=== PATIENT | female | born 1975 | race Caucasian/White ===

== ENCOUNTER 2019-06-18 09:35 | Emergency (ER) | payer OTHER, MEDICAID, SELFPAY ==
[2019-06-18 09:45] VITALS: BP 127/82; PULSE 83; RESP 17; TEMP 36.7; O2SAT 98; BMI 38.0
--- NOTE | 2019-06-18 09:49 | DI.RAD.S_ITS ---
PROCEDURE: XR ACUTE ABDOMEN SERIES INDICATIONS: hx of obstruction, c/o gas, bloating TECHNIQUE: One view chest and two views of the abdomen were acquired. COMPARISON: None. FINDINGS: Surgical changes and devices: None. Chest: Lungs are clear. Heart size is normal. No pleural effusions. No pneumoperitoneum. Abdomen: Bowel gas pattern is normal. No suspicious calcifications. Pelvic phleboliths are incidentally noted. Visualized solid organ contours appear normal. Bones: No suspicious bony lesions. Premature lower lumbar spine degenerative changes are seen. Mild S-shaped scoliotic curvature can be seen. IMPRESSION: A nonobstructive bowel gas pattern is seen. As clinically appropriate, please consider a repeat plain film study or a dedicated CT of the abdomen and pelvis, if the patient's symptoms persist or worsen. Dictated by: Alexis Winkler M.D. on 06/18/2019 at 9:27 Approved by: Alexis Winkler M.D. on 06/18/2019 at 9:29
--- NOTE | 2019-06-18 10:01 | ED_ITS ---
HPI - Abdominal Pain General Chief Complaint: Abdominal Pain Stated Complaint: stomach pain,gas, hard time voiding and vomiting Time Seen by Provider: 06/18/19 09:54 Source: patient Mode of arrival: Ambulatory History of Present Illness HPI narrative: The patient is a 43-year-old female who has a history of FAP and is status post colectomy. She has had a previous a temporary ileostomy. She also has a past history of having a total bowel obstruction. She complains of diffuse abdominal crampy discomfort with increased gas formation. She has had increased lattice and increased frequency of belching and burping. She denies any significant indigestion or heartburn. She has had been nauseous. She describes the abdominal pain as being diffusely crampy. She denies a history of Crohn's disease or ulcerative colitis or irritable bowel syndrome. She has chronic diarrhea since she has no:. She has had her appendix removed with a colectomy but is never had her gallbladder removed. She does not have a history of pancreatitis or diabetes. Her crampy abdominal pain is 7 to 8/10 in intensity. Her discomfort is intermittent and currently she is not having any at this time. She denies any fever chills or sweats but states that in April she had an episode of illness for a few weeks. She denies any chest pain cough shortness of breath difficulty in breathing and no urinary symptomatology. Related Data Previous Rx's Medication Instructions Recorded hydrocodone-acetaminophen [[place]] 1 tab PO Q6H PRN #10 tab 06/18/19 [id number]-[id number] [[place]] 7.371 cap PO TID #30 cap 06/18/19 ondansetron HCl [Zofran] 4 mg PO Q6H PRN #10 tab 06/18/19 Allergies Allergy/AdvReac Type Severity Reaction Status Date / Time codeine Allergy Headache Verified 06/18/19 10:40 Penicillins Allergy Rash Verified 06/18/19 10:40 Review of Systems Review of Systems Narrative: All review of systems were negative except for those mentioned in the history of present illness. Patient History Medical History (Updated 06/18/19 @ 12:55 by Jay Jay Juarez MD) Bowel obstruction (Acute) Familial adenomatous polyposis (Acute) Surgical History H/O colectomy (Acute) H/O tubal ligation (Acute) Family History Father Colon cancer Social History Smoking Status: Never smoker Smoking Status: Never smoker alcohol intake frequency: holidays/special occasions only Substance Use Type: marijuana Exam Narrative Exam Narrative: PHYSICAL EXAM: CONSTITUTIONAL: Awake, Alert, Oriented, Coherent, Cooperative in NAD. Does not appear toxic or ill. HEAD: AT/NC EENT: PERRL, FROM of eyes, no discharge, no nystagmus No epistaxis or nasal drainage Oral mucosa is moist and pink, posterior pharynx is without erythema or exudate. NECK: Supple, , Trachea is midline without stridor, no palpable LN or masses. SPINE: No gross deformity, no palpable tenderness of the cervical, thoracic, lumbar or sacral spine. No CVA tenderness. THORAX: No deformity, retractions, chest wall tenderness, subcutaneous air or crepitice. LUNGS: Clear with symmetrical breath sounds without respiratory distress HEART: Normal heart tones, regular rhythm and rate without murmur. ABDOMEN: The patient's abdomen is soft, globular, doughy, without rigidity or guarding. She has diffuse tenderness to deep palpation and the evidence of surgical scars. EXTREMITIES: No edema, cyanosis, deformity or tenderness. SKIN: No rash, bruising, petechiae or purpura. NEURO: Awake, alert, oriented, conversive, cranial nerves II-XII are symmetrical and normal, moves all 4 extremities and is ambulatory Initial Vital Signs Initial Vital Signs: Vital Signs Temperature 98.1 F 06/18/19 09:45 Pulse Rate 83 06/18/19 09:45 Respiratory Rate 17 06/18/19 09:45 Blood Pressure 127/82 06/18/19 09:45 Pulse Oximetry 98 06/18/19 09:45 Course Course Course Narrative: 1147;The patient's laboratory tests revealed that she has a lipase at 1111. The patient has acute pancreatitis. She has been tolerating it. Her pain is significantly better after the Toradol. She was claiming that it was essentially 2/10. However when I went to re-evaluate her again she says that the pain is getting worse. I will a administer 4 mg of morphine sulfate. An ultrasound of her gallbladder and right upper quadrant has been ordered. There is no evidence of any bowel obstruction. Orders Ordered: Discontinued Medications Sodium Chloride (Normal Saline 0.9%) 1,000 mls @ 150 mls/hr IV CONT NIGEL Last Admin: 06/18/19 10:41 Dose: 150 mls/hr Documented by: VELASQUEZ Ketorolac Tromethamine (Toradol) 30 mg IV NOW ONE Stop: 06/18/19 10:11 Last Admin: 06/18/19 10:41 Dose: 30 mg Documented by: VELASQUEZ Ondansetron HCl (Zofran) 4 mg IV NOW ONE Stop: 06/18/19 10:10 Last Admin: 06/18/19 10:41 Dose: 4 mg Documented by: VELASQUEZ Vital Signs Vital signs: Vital Signs - 8 hr 06/18/19 09:45 06/18/19 11:32 06/18/19 11:36 Temperature 98.1 F Pulse Rate 83 70 Respiratory Rate 17 Blood Pressure 127/82 Blood Pressure [Left Arm] 100/70 Pulse Oximetry 98 100 MDM - Abdominal Pain Lab Data Result diagrams: 06/18/19 10:30 06/18/19 10:30 Labs: Lab Results 06/18/19 06/18/19 06/18/19 Range/Units 09:41 10:30 10:30 WBC 7.2 (4.5-11.0) X10^3/uL RBC 4.20 (4.0-5.2) X10^6/uL Hgb 13.0 (12.0-16.0) g/dL Hct 38.1 (36-46) % MCV 90.7 (80-100) fL MCH 31.0 (26-34) PG MCHC 34.1 (30-36) % RDW 14.4 (11.6-14.8) % Plt Count 309 (150-400) X10^3/uL Neut % (Auto) 62.9 (50-75) % Lymph % (Auto) 24.7 L (25-40) % [place] % (Auto) 8.8 (3-14) % Eos % (Auto) 2.9 (2-4) % Baso % (Auto) 0.7 (0-2) % Neut # (Auto) 4500 (1477-3811) /uL Lymph # (Auto) 1800 (4216-0931) /uL [place] # (Auto) 600 (0-900) /uL Eos # (Auto) 200 (0-450) /uL Baso # (Auto) 100 (0-100) /uL Sodium 137 (137-145) mmol/L Potassium 4.0 (3.4-5.1) mmol/L Chloride 103 (98-107) mmol/L Carbon Dioxide 26 (22-32) mmol/L BUN 20 H (7-17) mg/dL Creatinine 0.90 (0.52-1.04) mg/dL Estimated GFR > 60.0 (>60) mL/min BUN/Creatinine Ratio 22.2 H (6-22) Glucose 82 (70-100) mg/dL Calcium 9.4 (8.4-10.2) mg/dL Total Bilirubin 0.3 (0.2-1.3) mg/dL AST 20 (14-36) IU/L ALT 11 (<35) IU/L Alkaline Phosphatase 86 (38-126) U/L Total Protein 7.5 (6.3-8.2) g/dL Albumin 4.4 (3.5-5.0) g/dL Globulin 3.1 (1.7-4.1) g/dL Albumin/Globulin Ratio 1.4 (1.0-2.8) Lipase 1111 H (23-300) U/L Urine RBC 1-5/hpf (0-5/HPF) Urine WBC 10-30/hpf H (0-5/HPF) Urine Bacteria Moderate (10-30) H (None) Ur Culture Indicated? Specimen cultured Point of care testing: Point of Care Testing Test Results Negative Urine Dip Bedside Urine Glucose Negative Bedside Urine Bilirubin - Negative Bedside Urine Ketone - Negative Urine Specific [place] 1.030 Bedside Urine Occult Blood +/- Bedside Urine pH 6.0 Bedside Urine Protein + 30 Bedside Urine Urobilinogen - Negative Bedside Urine Nitrite - Negative Bedside Urine Leukocytes ++ 125 Esterase Discharge Plan Departure Patient Disposition: Home Clinical Impression: Nausea, Pancreatitis Abdominal pain Qualifiers: Abdominal location: generalized Qualified Code(s): R10.84 - Generalized abdominal pain Discharge Date/Time: 06/18/19 13:10 Instructions: DI for Pancreatitis, DI for Abdominal Pain-Adult, DI for Nausea -- Adult Activity Restrictions/Additional Instructions: If your pain suddenly becomes worse an you develop intense nausea and vomiting such that her unable to keep liquids or solids down you need to return to the emergency department. Center going on vacation take the pancreatic enzymes before any meals with solid foods prior to eating. For the low next 24-48 hours try and stay on a liquid diet without fat it in it and then slowly advanced her diet as tolerated. Since the pancreas secretions the enzymes that digest your food eating solids may cause your pancreatitis to flare. If the pain becomes intolerable with persistent nausea and vomiting as previously mentioned unable to keep anything down you will need [facility] An urgent care center will not be able to help ER. You need to follow-up with your primary care physician for re-evaluation. Keep a log of your episodes of pancreatitis pain and discomfort and the surrounding circumstances as well as how long your pancreatitis lasts. Your ultrasound was negative for gallstones. Prescriptions: New ondansetron HCl [Zofran] 4 mg tablet 4 mg PO Q6H PRN (Reason: nausea and vomiting) Qty: 10 RF: 0 hydrocodone-acetaminophen [[place]] 5-325 mg tablet 1 tab PO Q6H PRN (Reason: pain) Qty: 10 RF: 0 Creon 6,000-19,000 -30,000 unit capsule,delayed release(DR/EC) 7.371 cap PO TID Qty: 30 RF: 0
[2019-06-18 10:15] LABS: RBC Urine 1-5/HPF (0-5/HPF)
[2019-06-18 10:16] LABS: Bacteria Urine Moderate (10-30); Culture Indicated Urine Specimen Cultured; WBC Urine 10-30/HPF (0-5/HPF)
[2019-06-18 10:38] LABS: Add Manual Diff / Slide Review NO; Basophils Absolute Auto 100 /uL (0-100); Basophils Percent Auto 0.7 % (0-2); Eosinophils Absolute Auto 200 /uL (0-450); Eosinophils Percent Auto 2.9 % (2-4); Hematocrit 38.1 % (36-46); Lymphocytes Absolute Auto 1800 /uL (1100-4500); Lymphocytes Percent Auto 24.7 % (25-40); Mean Corpuscular HGB Conc 34.1 % (30-36); Mean Corpuscular Volume 90.7 fL (80-100); Monocytes Absolute Auto 600 /uL (0-900); Monocytes Percent Auto 8.8 % (3-14); Neutrophils Absolute Auto 4500 /uL (1500-7000); Neutrophils Percent Auto 62.9 % (50-75); Platelet Count 309 X10^3/uL (150-400); Red Cell Distribution Width 14.4 % (11.6-14.8); White Blood Cell Count 7.2 X10^3/uL (4.5-11.0)
[2019-06-18] MEDS: ONDANSETRON 4 MG/2 ML INJ IV (10:41)
[2019-06-18] MEDS: KETOROLAC 60 MG/2 ML VIAL 30 MG IV (10:41)
[2019-06-18] MEDS: SODIUM CHLORIDE 0.9% 1,000 ML 150 ML IV (10:41)
[2019-06-18 10:48] LABS: Alanine Aminotransferase 11 IU/L (<35); Albumin 4.4 g/dL (3.5-5.0); Albumin Globulin Ratio 1.4 (1.0-2.8); Alkaline Phosphatase 86 U/L (38-126); Aspartate Aminotransferase 20 IU/L (14-36); BUN Creatinine Ratio 22.2 (6-22); Bilirubin Total 0.3 mg/dL (0.2-1.3); Blood Urea Nitrogen 20 mg/dL (7-17); Calcium 9.4 mg/dL (8.4-10.2); Carbon Dioxide 26 mmol/L (22-32); Chloride 103 mmol/L (98-107); Estimated Glomerular Filt Rate > 60.0 mL/min (>60); Globulin 3.1 g/dL (1.7-4.1); Glucose 82 mg/dL (70-100); HEMOLYSIS < 15 (0-50); Lipase 1111 U/L (23-300); Sodium 137 mmol/L (137-145); Total Protein 7.5 g/dL (6.3-8.2)
[2019-06-18 11:32] VITALS: BP 100/70
[2019-06-18 11:36] VITALS: PULSE 70; O2SAT 100
--- NOTE | 2019-06-18 11:42 | DI.US.S_ITS ---
PROCEDURE: US ABDOMEN LIMITED INDICATIONS: ACUTE PANCREATITIS, RULE OUT GALLSTONES TECHNIQUE: Real-time focused scanning was performed of the abdomen, with image documentation. COMPARISON: [facility], , XR ACUTE ABDOMEN SERIES, 06/18/2019, 9:50. FINDINGS: The liver is enlarged and demonstrates mildly generalized increased echogenicity. No findings of gallstones or sludge are seen. The gallbladder wall is not thickened, measuring 3 mm or less. No specific pericholecystic fluid is seen. The sonographic Hoang sign is negative. There is no biliary dilatation, the common bile duct measures 3 mm. The visualized pancreas is unremarkable. This study is limited by body habitus. IMPRESSION: The gallbladder demonstrates a normal sonographic appearance. No biliary dilatation is seen. Enlarged, fatty liver. Note: Concordant preliminary findings given by the milk condenser upon the completion of the examination to Dr. Juarez at 12:25 PM [place] time on June 18, 2019. Dictated by: Alexis Winkler M.D. on 06/18/2019 at 12:14 Approved by: Alexis Winkler M.D. on 06/18/2019 at 12:15
[2019-06-18 12:01] VITALS: BP 118/82; PULSE 70; RESP 14; O2SAT 100
[2019-06-18 12:59] VITALS: BP 105/74; PULSE 71; O2SAT 100
--- NOTE | 2019-07-10 07:21 | PC.NURSE ---
Late entry. Normal saline fluid was stopped at 1305.
== END 2019-06-18 13:10 | disposition home or self-care (01) ==
PROVIDERS: Emergency Provider Emergency Medicine
DX: R11.0 Nausea (principal); K85.90 Acute pancreatitis without necrosis or infection, unspecified; R10.84 Generalized abdominal pain
CPT/HCPCS: 36415; 74022; 76705; 80053; 81003; 81015; 81025; 83690; 85025; 87077; 87086; 87186; 96361; 96374; 96375; 99284; J1885; J2405

== ENCOUNTER 2019-11-09 18:25 | Emergency (ER) | payer OTHER, MEDICAID, SELFPAY ==
--- NOTE | 2019-11-09 18:32 | ED_ITS ---
HPI - Abdominal Pain General Chief Complaint: Abdominal Pain Stated Complaint: flaring abd pain through chest Time Seen by Provider: 11/09/19 18:26 Source: patient and family Mode of arrival: Ambulatory Limitations: no limitations History of Present Illness HPI narrative: 43-year-old female nonsmoker with extensive gastrointestinal history presents with her in the chief complaint of multiple episodes of epigastric pain off and on since May but more intense today. She denies any obvious triggers such as alcohol, fatty foods but does have a history of pancreatitis, small-bowel obstruction, colon resection and possible pouchitis. She was seen in May and diagnosed with pancreatitis and had recent follow up with GI. He thought more likely a case of pouchitis than pancreatitis, an EGD was performed which sounds like it showed nothing significant. She's had no fever or chills. MD complaint: abdominal pain Onset (ago): day(s) Pain Consistency: intermittent Location: epigastric Severity: moderate Quality: cramping and aching Radiation: none Migration to: no migration Relieving factors: nothing Exacerbating factors: nothing Associated symptoms: denies other symptoms Related Data Previous Rx's Medication Instructions Recorded hydrocodone-acetaminophen [[place]] 1 tab PO Q6H PRN #10 tab 06/18/19 [id number] [Creon] 7.371 cap PO TID #30 cap 06/18/19 ondansetron HCl [Zofran] 4 mg PO Q6H PRN #10 tab 06/18/19 Allergies Allergy/AdvReac Type Severity Reaction Status Date / Time codeine Allergy Headache Verified 06/18/19 10:40 Penicillins Allergy Rash Verified 06/18/19 10:40 Review of Systems Constitutional Constitutional: Denies chills, Denies fatigue, Denies fever(s), Denies frequent falls, Denies lethargy and Denies weakness Eyes Eyes: Denies change in vision, Denies eye discharge, Denies irritation and Denies loss of vision ENT Ears, Nose, Mouth, and Throat: Denies change in voice, Denies dizziness, Denies neck pain, Denies sore throat and Denies throat swelling Cardiovascular Cardiovascular: Denies chest pain, Denies irregular heart rhythm, Denies lightheadedness, Denies palpitations, Denies dyspnea, Denies dyspnea on exertion and Denies orthopnea Respiratory Respiratory: Denies cough, Denies dyspnea, Denies dyspnea on exertion and Denies wheezing Gastrointestinal Gastrointestinal: Reports abdominal pain, Denies change in bowel habits, Denies diarrhea, Denies nausea and Denies vomiting Musculoskeletal Musculoskeletal: Denies neck pain and Denies numbness Integumentary/Breasts Skin/Breast: Denies pruritus, Denies erythema, Denies rash and Denies wounds Neurologic Neurologic: Denies behavioral changes, Denies confusion, Denies dizziness, Denies frequent falls, Denies loss of vision, Denies numbness and Denies weakness Psychiatric Psychiatric: Denies anxiety, Denies behavioral changes, Denies confusion, Denies depression, Denies homicidal ideation and Denies suicidal ideation Endocrine Endocrine: Denies fatigue, Denies flushing and Denies palpitations Hematologic/Lymphatic Hematologic/Lymphatic: Denies easy bruising Allergic/Immunologic Allergic/Immunologic: Denies urticaria, Denies throat swelling and Denies wheezing Patient History Medical History Bowel obstruction (Acute) Familial adenomatous polyposis (Acute) Surgical History H/O colectomy (Acute) H/O tubal ligation (Acute) Family History Father Colon cancer Social History Smoking Status: Never smoker Smoking Status: Never smoker alcohol intake frequency: holidays/special occasions only Substance Use Type: marijuana Exam Narrative Exam Narrative: GENERAL: [43] year old patient appears stated age. Well- nourished, well-developed patient, in mild distress. HEAD: Atraumatic. Normocephalic. EYES: Pupils equal round and reactive. Extraocular motions intact. No scleral icterus. No injection or drainage. ENT: Nose without bleeding, purulent drainage. Throat without erythema, tonsillar hypertrophy or exudate. Airway patent. NECK: Trachea midline. Non tender CARDIOVASCULAR: Regular rate and rhythm without murmurs, gallops, or rubs. RESPIRATORY: Clear to auscultation. Breath sounds equal bilaterally. No wheezes, rales, or rhonchi. GASTROINTESTINAL: Abdomen soft, tender in epigastrium, nondistended. EXTREMITIES: No edema or joint tenderness. BACK: Nontender without deformity or crepitance. No flank tenderness. NEURO: AOx3. SKIN: No rash or erythema of visible areas Initial Vital Signs Initial Vital Signs: Vital Signs Temperature 98.4 F 11/09/19 18:36 Pulse Rate 68 11/09/19 18:36 Respiratory Rate 16 11/09/19 18:36 Blood Pressure 141/88 H 11/09/19 18:36 Pulse Oximetry 97 11/09/19 18:36 Course Orders Ordered: ED Orders 11/09/19 18:34 EKG-12 Lead Stat 11/09/19 18:40 Complete Blood Count AUTO DIFF Stat Comprehensive Metabolic Panel Stat Lipase Stat Partial Thromboplastin Time Stat Prothrombin Time INR Stat 11/09/19 19:20 US abdomen limited Stat 11/09/19 19:21 Urine Culture Stat Urine Microscopic Stat Discontinued Medications Al Hydrox/Mg Hydrox/Simethicone 20 ml/ Lidocaine HCl 15 ml 0 ml PO NOW ONE Stop: 11/09/19 19:21 Last Admin: 11/09/19 19:33 Dose: 35 ml Documented by: MMCFARL Hydromorphone HCl (Dilaudid) 0.5 mg IV NOW ONE Stop: 11/09/19 20:06 Last Admin: 11/09/19 20:09 Dose: 0.5 mg Documented by: MMCFARL Sodium Chloride (Normal Saline 0.9%) 1,000 mls @ 1,000 mls/hr IV BOLUS ONE Stop: 11/09/19 20:19 Last Infusion: 11/09/19 20:25 Dose: 0 mls/hr Documented by: Admin: 11/09/19 19:33 Dose: 1,000 mls/hr Documented by: MMCFARL Pantoprazole Sodium (Protonix) 40 mg IV NOW ONE Stop: 11/09/19 19:21 Last Admin: 11/09/19 19:32 Dose: 40 mg Documented by: MMCFARL Consultations Consultation #1: discussed with patient relations coordinator surgery. We share the opinion that further workup is appropriately completed as an outpatient. No need for advanced imaging tonight. Patient given return precautions and questions answered to the apparent satisfaction of patient and Vital Signs Vital signs: Vital Signs - 8 hr 11/09/19 18:36 11/09/19 20:00 Temperature 98.4 F Pulse Rate 68 76 Respiratory Rate 16 21 Blood Pressure 141/88 H Blood Pressure [Left Arm] 141/88 H Pulse Oximetry 97 MDM - Abdominal Pain Lab Data Result diagrams: 11/09/19 18:40 11/09/19 18:40 Labs: Lab Results 11/09/19 11/09/19 11/09/19 Range/Units 18:40 18:40 18:40 WBC 10.8 (4.5-11.0) X10^3/uL RBC 4.16 (4.0-5.2) X10^6/uL Hgb 13.0 (12.0-16.0) g/dL Hct 37.8 (36-46) % MCV 90.8 (80-100) fL MCH 31.3 (26-34) PG MCHC 34.5 (30-36) % RDW 13.5 (11.6-14.8) % Plt Count 326 (150-400) X10^3/uL Neut % (Auto) 72.3 (50-75) % Lymph % (Auto) 18.8 L (25-40) % [place] % (Auto) 6.8 (3-14) % Eos % (Auto) 1.3 L (2-4) % Baso % (Auto) 0.8 (0-2) % Neut # (Auto) 7800 H (7926-7065) /uL Lymph # (Auto) 2000 (7644-4666) /uL [place] # (Auto) 700 (0-900) /uL Eos # (Auto) 100 (0-450) /uL Baso # (Auto) 100 (0-100) /uL PT 11.0 (10.1-12.7) SECONDS INR 1.0 (0.9-1.3) APTT 31 (26.4-36.2) SECONDS Sodium 136 L (137-145) mmol/L Potassium 4.1 (3.4-5.1) mmol/L Chloride 103 (98-107) mmol/L Carbon Dioxide 29 (22-32) mmol/L BUN 10 (7-17) mg/dL Creatinine 1.02 (0.52-1.04) mg/dL Estimated GFR 59.1 L (>60) mL/min BUN/Creatinine Ratio 9.8 (6-22) Glucose 90 (70-100) mg/dL Calcium 9.5 (8.4-10.2) mg/dL Total Bilirubin 0.2 (0.2-1.3) mg/dL AST 52 H (14-36) IU/L ALT 15 (<35) IU/L Alkaline Phosphatase 93 (38-126) U/L Total Protein 7.0 (6.3-8.2) g/dL Albumin 4.3 (3.5-5.0) g/dL Globulin 2.7 (1.7-4.1) g/dL Albumin/Globulin Ratio 1.6 (1.0-2.8) Lipase 325 H (23-300) U/L Urine RBC (0-5/HPF) Urine WBC (0-5/HPF) Ur Squamous Epith Cells (0-5/HPF) Amorphous Sediment Urine Bacteria (None) Ur Culture Indicated? 11/09/19 Range/Units 19:21 WBC (4.5-11.0) X10^3/uL RBC (4.0-5.2) X10^6/uL Hgb (12.0-16.0) g/dL Hct (36-46) % MCV (80-100) fL MCH (26-34) PG MCHC (30-36) % RDW (11.6-14.8) % Plt Count (150-400) X10^3/uL Neut % (Auto) (50-75) % Lymph % (Auto) (25-40) % [place] % (Auto) (3-14) % Eos % (Auto) (2-4) % Baso % (Auto) (0-2) % Neut # (Auto) (4243-7485) /uL Lymph # (Auto) (3803-0502) /uL [place] # (Auto) (0-900) /uL Eos # (Auto) (0-450) /uL Baso # (Auto) (0-100) /uL PT (10.1-12.7) SECONDS INR (0.9-1.3) APTT (26.4-36.2) SECONDS Sodium (137-145) mmol/L Potassium (3.4-5.1) mmol/L Chloride (98-107) mmol/L Carbon Dioxide (22-32) mmol/L BUN (7-17) mg/dL Creatinine (0.52-1.04) mg/dL Estimated GFR (>60) mL/min BUN/Creatinine Ratio (6-22) Glucose (70-100) mg/dL Calcium (8.4-10.2) mg/dL Total Bilirubin (0.2-1.3) mg/dL AST (14-36) IU/L ALT (<35) IU/L Alkaline Phosphatase (38-126) U/L Total Protein (6.3-8.2) g/dL Albumin (3.5-5.0) g/dL Globulin (1.7-4.1) g/dL Albumin/Globulin Ratio (1.0-2.8) Lipase (23-300) U/L Urine RBC None seen (0-5/HPF) Urine WBC 5-10/hpf H (0-5/HPF) Ur Squamous Epith Cells 0-1 /hpf (0-5/HPF) Amorphous Sediment 1+ Urine Bacteria Occasional (0-1) D (None) Ur Culture Indicated? Specimen cultured Point of care testing: Point of Care Testing Test Results Negative Urine Dip Bedside Urine Glucose Negative Bedside Urine Bilirubin - Negative Bedside Urine Ketone - Negative Urine Specific [place] 1.015 Bedside Urine Occult Blood - Negative Bedside Urine pH 7.5 Bedside Urine Protein - Negative Bedside Urine Urobilinogen - Negative Bedside Urine Nitrite - Negative Bedside Urine Leukocytes +/- 15 Esterase Discharge Plan Departure Patient Disposition: Home Clinical Impression: Chronic epigastric pain Discharge Date/Time: 11/09/19 20:24 Instructions: DI for Epigastric Pain Activity Restrictions/Additional Instructions: 1. Drink plenty of fluids with frequent small sips. 2. For the next 24 hours a clear liquid diet is advised. After that please employ a brat diet which would include bananas, rice, apples, toast. 3. Please take medications as directed. 4. Please follow-up with your GI doctor in the next 1-2 days. Call the office for an appointment and let them know you were in the Emergency Department and we would like you to be seen in follow up 5. Please return to the emergency Department for any worsening or persistent symptoms, such as increasing pain or fever. Prescriptions: No Action ondansetron HCl [Zofran] 4 mg tablet 4 mg PO Q6H PRN (Reason: nausea and vomiting) Qty: 10 RF: 0 hydrocodone-acetaminophen [[place]] 5-325 mg tablet 1 tab PO Q6H PRN (Reason: pain) Qty: 10 RF: 0 Creon 6,000-19,000 -30,000 unit capsule,delayed release(DR/EC) 7.371 cap PO TID Qty: 30 RF: 0 Referrals: Leela Singleton ARNP [Primary Care Provider] -
[2019-11-09 18:36] VITALS: BP 141/88; PULSE 68; RESP 16; TEMP 36.9; O2SAT 97; BMI 37.0
[2019-11-09 18:56] LABS: Add Manual Diff / Slide Review NO; Basophils Absolute Auto 100 /uL (0-100); Basophils Percent Auto 0.8 % (0-2); Eosinophils Absolute Auto 100 /uL (0-450); Eosinophils Percent Auto 1.3 % (2-4); Hematocrit 37.8 % (36-46); Lymphocytes Absolute Auto 2000 /uL (1100-4500); Lymphocytes Percent Auto 18.8 % (25-40); Mean Corpuscular HGB Conc 34.5 % (30-36); Mean Corpuscular Hemoglobin 31.3 PG (26-34); Mean Corpuscular Volume 90.8 fL (80-100); Monocytes Absolute Auto 700 /uL (0-900); Monocytes Percent Auto 6.8 % (3-14); Neutrophils Absolute Auto 7800 /uL (1500-7000); Neutrophils Percent Auto 72.3 % (50-75); Platelet Count 326 X10^3/uL (150-400); Red Blood Cell Count 4.16 X10^6/uL (4.0-5.2); Red Cell Distribution Width 13.5 % (11.6-14.8); White Blood Cell Count 10.8 X10^3/uL (4.5-11.0)
[2019-11-09 19:14] LABS: PTT Partial Thromboplastin Tim 31 SECONDS (26.4-36.2)
[2019-11-09 19:15] LABS: Alanine Aminotransferase 15 IU/L (<35); Albumin 4.3 g/dL (3.5-5.0); Albumin Globulin Ratio 1.6 (1.0-2.8); Alkaline Phosphatase 93 U/L (38-126); Aspartate Aminotransferase 52 IU/L (14-36); BUN Creatinine Ratio 9.8 (6-22); Bilirubin Total 0.2 mg/dL (0.2-1.3); Blood Urea Nitrogen 10 mg/dL (7-17); Calcium 9.5 mg/dL (8.4-10.2); Carbon Dioxide 29 mmol/L (22-32); Chloride 103 mmol/L (98-107); Estimated Glomerular Filt Rate 59.1 mL/min (>60); Globulin 2.7 g/dL (1.7-4.1); Glucose 90 mg/dL (70-100); HEMOLYSIS < 15 (0-50); Lipase 325 U/L (23-300); Potassium 4.1 mmol/L (3.4-5.1); Sodium 136 mmol/L (137-145)
--- NOTE | 2019-11-09 19:20 | DI.US.S_ITS ---
PROCEDURE: US ABDOMEN LIMITED INDICATIONS: SEVERE EPIGASTRIC PAIN TECHNIQUE: Real-time scanning was performed of the abdominal and retroperitoneal organs, with image documentation. COMPARISON: [facility], , US ABDOMEN LIMITED, 06/18/2019, 12:09. FINDINGS: Liver: Liver is borderline enlarged measures 18.8 cm in length. Increased liver parenchyma echotexture is seen. No discrete hepatic lesion is noted. Gallbladder: There is no gallstone. No gallbladder wall thickening or pericholecystic fluid. No sonographic Hoang's sign. Biliary ducts: Intrahepatic bile ducts are non-dilated. Extrahepatic bile duct caliber measures 4.4 mm. Normal is 6-7 mm or less in diameter, or 10 mm or less post-cholecystectomy. Pancreas: Visualized portions of the pancreas are sonographically normal. IMPRESSION: 1. Normal appearing gallbladder. No evidence of cholelithiasis or acute cholecystitis. 2. Hepatic steatosis and mild hepatomegaly. No discrete hepatic lesion. 3. No biliary ductal dilatation. Dictated by: Navjot Gee M.D. on 11/09/2019 at 20:17 Approved by: Navjot Gee M.D. on 11/09/2019 at 20:18
[2019-11-09] MEDS: PANTOPRAZOLE 40 MG VIAL IV (19:32)
[2019-11-09] MEDS: SODIUM CHLORIDE 0.9% 1,000 ML 1000 ML IV (19:33)
[2019-11-09] MEDS: MAG HYDROX/ALUMINUM/SIMETH SUS 20 ML, LIDOCAINE VISCOUS 2% 15 ML PO (19:33)
[2019-11-09 19:48] LABS: RBC Urine None Seen (0-5/HPF)
[2019-11-09 19:58] LABS: Amorphous Sediment Urine 1+; Bacteria Urine Occasional (0-1); Culture Indicated Urine Specimen Cultured; Squamous Epithelial Cell Urine 0-1 /HPF (0-5/HPF); WBC Urine 5-10/HPF (0-5/HPF)
[2019-11-09 20:00] VITALS: BP 141/88; PULSE 76; RESP 21
[2019-11-09] MEDS: HYDROMORPHONE 0.5 MG INJ IV (20:09)
== END 2019-11-09 20:24 | disposition home or self-care (01) ==
PROVIDERS: Emergency Provider Emergency Medicine; PCP Nurse Practitioner Family
DX: R10.13 Epigastric pain (principal)
CPT/HCPCS: 36415; 76705; 80053; 81003; 81015; 81025; 83690; 85025; 85610; 85730; 87077; 87086; 87186; 93005; 96361; 96374; 96375; 99284; 99285; C9113; J1170

== ENCOUNTER 2020-10-29 01:56 | Emergency (ER) | payer OTHER, MEDICAID, SELFPAY ==
[2020-10-29] VITALS (12 sets, daily range): BP systolic 130–136; BP diastolic 54–90; PULSE 80–98; RESP 16–24; TEMP 36.9; O2SAT 96–100; BMI 38.2
--- NOTE | 2020-10-29 02:06 | DI.RAD.S_ITS ---
PROCEDURE: XR ANKLE RT MIN 3V INDICATIONS: trauma, meets [place] ankle rules TECHNIQUE: 3views of the ankle were acquired. COMPARISON: None. FINDINGS: Bones: No fractures or dislocations. Ankle mortise is normally aligned. No suspicious bony there is a comminuted distal fibular fracture, above the level of the base of the lateral malleolus. There is a medial malleolus fracture across its base, diagonal. There is abnormal subluxation of the distal tibial plafond medially, to a moderate degree. lesions. Soft tissues: No tibiotalar joint effusion. Achilles tendon appears normal. IMPRESSION: Unstable fracture complex as discussed, involving the medial and lateral malleolus regions. Abnormal subluxation medially. Dictated by: Avtar Martinez M.D. on 10/29/2020 at 7:40 Approved by: Avtar Martinez M.D. on 10/29/2020 at 7:41
--- NOTE | 2020-10-29 02:07 | ED_ITS ---
HPI - Extremity Problem General Chief complaint: Extremity Injury, Lower Stated complaint: right ankle injury Time Seen by Provider: 10/29/20 02:04 History of Present Illness HPI Narrative: 44-year-old woman otherwise healthy who stumbled down the last number of stairs this evening and twisted her right ankle. She was unable to bear weight at all and the ankle is slightly deformed. She has scribed no other injuries with the fall and no complaints of knee hip or shoulder pain. She did not hit her head. Related Data Previous Rx's Medication Instructions Recorded hydrocodone-acetaminophen [[place]] 1 tab PO Q6H PRN #10 tab 06/18/19 htgilc-[id number] [Creon] 7.371 cap PO TID #30 cap 06/18/19 ondansetron HCl [Zofran] 4 mg PO Q6H PRN #10 tab 06/18/19 oxycodone-acetaminophen 1 tab PO Q6H PRN 10 Days #20 tab 10/29/20 Allergies Allergy/AdvReac Type Severity Reaction Status Date / Time codeine Allergy Headache Verified 06/18/19 10:40 Penicillins Allergy Rash Verified 06/18/19 10:40 Review of Systems Review of Systems Narrative: Pertinent positive and negative findings as per HPI Remainder of review of systems is otherwise unremarkable for Constitutional: Fevers, chills, weakness ENT: No sore throat, neck pain, ear pain CV: Chest pain, palpitations, Respiratory: Cough, wheeze, dyspnea GI: Nausea, vomiting, diarrhea, : Dysuria, hematuria, Patient History Medical History (Updated 10/29/20 @ 03:51 by Adelaide Rubi MD) Bowel obstruction Familial adenomatous polyposis Surgical History H/O colectomy H/O tubal ligation Family History Father Colon cancer Social History Smoking Status: Never smoker Smoking Status: Never smoker alcohol intake frequency: holidays/special occasions only Substance Use Type: marijuana Exam Narrative Exam Narrative: General: Alert appropriate in no acute distress Respiratory: Able to speak in full sentences, no obvious respiratory distress Skin: No obvious rashes, warm and dry Neurologic: Grossly intact no obvious asymmetries or abnormalities Psych: appropriate insight and affect, cooperative Extremity: Right ankle is tender on both malleoli moderate deformity medially with limited range of motion. No significant hematomas or abrasions appreciated yet. She is neurovascularly intact Initial Vital Signs Initial Vital Signs: Vital Signs Temperature 98.5 F 10/29/20 02:22 Pulse Rate 98 H 10/29/20 02:22 Respiratory Rate 22 10/29/20 02:22 Blood Pressure 132/71 10/29/20 02:22 Pulse Oximetry 100 10/29/20 02:22 Procedures Orthopedic Fracture Reduction Right ankle: Time Out Performed: Yes Side: right Fracture Reduction Location: tibia and fibula Analgesia: procedural sedation Technique: direct manipulation and traction/counter-traction Post Reduction X-rays Demonstrate: anatomical reduction Post-reduction neuro exam: intact Post-reduction vascular exam: intact Splint Applied: Yes Patient Tolerated Procedure: Well Orthopedic Splinting/Casting Right ankle: Side: right Lower Extremity Injury Location: ankle Lower Extremity Immobilizer: posterior splint and stirrup splint Other Orthopedic Equipment: crutches Post splinting neuro exam: intact Post splinting vascular exam: intact Placed by: Provider Procedural Sedation Time out performed: Yes Indication: fracture/dislocation reduction ASA Class: II Mallampati Airway Classification: Class II Preparation: campus monitor applied, pulse oximeter, capnometry used, suction/airway equipment at bedside and IV secured Fentanyl: IV (100) Midazolam: IV Midazolam dose (mg): 2 Intraservice time/total sedation time (min): 14 ED Sedation Level: Moderate (Concious) Patient Tolerated Procedure: Well Complications: none Course Orders Ordered: ED Orders 10/29/20 02:06 XR ankle RT min 3V Stat 10/29/20 03:09 XR ankle RT min 3V Stat Discontinued Medications Fentanyl (Fentanyl 100 Mcg/2 Ml Inj) 200 mcg IV NOW ONE Stop: 10/29/20 02:30 Last Admin: 10/29/20 02:57 Dose: 100 mcg Documented by: YG Ibuprofen (Ibuprofen 400 Mg Tablet) 400 mg PO NOW ONE Stop: 10/29/20 02:07 Last Admin: 10/29/20 02:16 Dose: 400 mg Documented by: YG Midazolam HCl (Midazolam 2 Mg/2 Ml Vial) 2 mg IV NOW ONE Stop: 10/29/20 02:30 Last Admin: 10/29/20 02:57 Dose: 2 mg Documented by: YG Oxycodone/Acetaminophen (Oxycodone/Acetaminophen 5/325 Tablet) 1 tab PO NOW ONE Stop: 10/29/20 02:07 Last Admin: 10/29/20 02:16 Dose: 1 tab Documented by: YG Vital Signs Vital signs: Vital Signs - 8 hr 10/29/20 02:22 10/29/20 02:50 10/29/20 02:55 Temperature 98.5 F Pulse Rate 98 H 89 90 Respiratory Rate 22 20 22 Blood Pressure 132/71 Pulse Oximetry 100 98 97 10/29/20 03:00 10/29/20 03:05 10/29/20 03:10 Temperature Pulse Rate 92 H 90 88 Respiratory Rate 24 18 16 Blood Pressure Pulse Oximetry 97 98 97 10/29/20 03:11 10/29/20 03:15 10/29/20 03:16 Temperature Pulse Rate 95 H 95 H 91 H Respiratory Rate 18 Blood Pressure 130/54 L 132/77 Pulse Oximetry 98 96 96 10/29/20 03:20 10/29/20 03:25 10/29/20 03:30 Temperature Pulse Rate 86 80 92 H Respiratory Rate 16 18 Blood Pressure 136/90 Pulse Oximetry 97 96 99 MDM - Extremity (Nontraumatic) Imaging Data Right ankle x-ray: Radiologist's Impression: initial: Distal right tibial and fibular fractures associated with the disruption of the ankle mortise Dagoberto Felipe MD post reduction/splinting Improved alignment of distal fibular and tibial fractures and of the ankle mortise following closed reduction and cast placement Dagoberto Felipe MD [facility] Narrative Medical decision making narrative: 44-year-old woman who stumbled down the last 4-5 steps and has a bimalleolar right ankle fracture with disruption of the ankle mortise. She was given conscious sedation while the ankle was realigned and posterior and sugar-tong splints were applied. She tolerated procedure well. Postprocedure x-rays showed improved alignment. Pain was much better controlled with stabilization. She is instructed on how to use crutches She is given information on how to contact [facility] on Friday to schedule an appointment for definitive care. She is warned that this is an unstable fracture and she likely will have surgical intervention recommended. She is safe for home discharge Discharge Plan Departure Patient Disposition: Home Clinical Impression: Closed fracture of distal end of right fibula and tibia Qualifiers: Encounter type: initial encounter Qualified Code(s): S82.831A - Other fracture of upper and lower end of right fibula, initial encounter for closed fracture Instructions: How to Use Crutches, DI for Ankle Fracture, DI for Moderate Sedation Activity Restrictions/Additional Instructions: Thank you for coming in today You did break both bones of your ankle. This is an unstable fracture. Please do not put any weight at all on that foot. You need to contact [facility] at [phone] on Friday. Please let them know that you were in the emergency department and you have a Bimalleolar ankle fracture. You will need to be seen for definitive care and very likely will need surgery. Using 400 mg of ibuprofen (2 wevn-jde-qhixxsy pills) and 1 Tylenol every 6 hours can be very helpful in controlling pain. For severe pain using 400 mg of ibuprofen and 1 Percocet can be helpful. Ice to the outside of the cast can help with some of the swelling and keeping the foot elevated will also help with some of the pain. We did use medications to slightly sedate you while the ankle was readjusted and the splint was placed. You tolerated this well. If you have worsening symptoms or new findings, please feel free to return to the emergency department. I hope you heal quickly Prescriptions: New oxycodone-acetaminophen 5-325 mg tablet 1 tab PO Q6H PRN (Reason: pain) 10 Days Qty: 20 RF: 0 No Action ondansetron HCl [Zofran] 4 mg tablet 4 mg PO Q6H PRN (Reason: nausea and vomiting) Qty: 10 RF: 0 hydrocodone-acetaminophen [[place]] 5-325 mg tablet 1 tab PO Q6H PRN (Reason: pain) Qty: 10 RF: 0 Creon 6,000-19,000 -30,000 unit capsule,delayed release(DR/EC) 7.371 cap PO TID Qty: 30 RF: 0 Referrals: Leela Singleton ARNP [Primary Care Provider] -
[2020-10-29] MEDS: OXYCODONE/ACETAMINOPHEN 5/325 TABLET 1 TAB PO (02:16)
[2020-10-29] MEDS: IBUPROFEN 400 MG TABLET PO (02:16)
[2020-10-29] MEDS: MIDAZOLAM 2 MG/2 ML VIAL IV (02:57)
[2020-10-29] MEDS: fentaNYL 100 MCG/2 ML INJ 200 MCG IV (02:57)
--- NOTE | 2020-10-29 03:09 | DI.RAD.S_ITS ---
PROCEDURE: XR ANKLE RT MIN 3V INDICATIONS: post reduction and splinting TECHNIQUE: 3 views of the ankle were acquired. COMPARISON: [facility], CR, XR ANKLE RT MIN 3V, 10/29/2020, 2:10. FINDINGS: Bones: No new fractures or dislocations. Ankle mortise is normally aligned. No suspicious bony lesions. There has been significant improvement malalignment at the fracture planes identified earlier same day, after closed reduction and splinting. Soft tissues: No tibiotalar joint effusion. Achilles tendon appears normal. IMPRESSION: Improved degree of malalignment at the fracture planes after closed reduction. Orthopedic surgical consultation is anticipated. Dictated by: Avtar Martinez M.D. on 10/29/2020 at 7:38 Approved by: Avtar Martinez M.D. on 10/29/2020 at 7:39
--- NOTE | 2020-10-29 03:19 | PC.NURSE ---
Posterior leg and sugar tong splints applied after reduction.
== END 2020-10-29 04:07 | disposition home or self-care (01) ==
PROVIDERS: Emergency Provider Emergency Medicine; PCP Nurse Practitioner Family
DX: S82.831A Other fracture of upper and lower end of right fibula, initial encounter for closed fracture (principal); X50.1XXA Overexertion from prolonged static or awkward postures, initial encounter
CPT/HCPCS: 27752; 73610; 99152; 99284; J2250; J3010

== ENCOUNTER 2020-10-31 19:14 | Emergency (ER) | payer OTHER, MEDICAID, SELFPAY ==
[2020-10-31 19:24] VITALS: BP 138/80; PULSE 105; RESP 20; TEMP 36.7; O2SAT 100
--- NOTE | 2020-10-31 19:54 | ED.RECABL ---
HPI - Recheck/Abnormal Lab/Rx General Chief Complaint: Recheck/Abnormal Lab/Rx Stated Complaint: needs pain meds Time Seen by Provider: 10/31/20 19:54 Source: patient and family () Mode of arrival: Wheelchair Limitations: no limitations History of Present Illness HPI narrative: This is a 44-year-old female who is here requesting a prescription refill for narcotic pain medication for a right ankle fracture that occurred on 10/29/2020. Patient is and has been states they saw the PA or nurse practitioner at the orthopedic office. They have plan for surgical fixation in the next 3 days but have not been given exact date. Patient prescription for narcotic pain medication sent to [email or web address]. This was sent to the [facility] in [place] where it was supposed to go to [place]. Patient family have driven to [place], told they could not fill the prescription because it has been canceled and sent to [place]. They went to the [facility] where they will so that was not available. They have been in contact with the Orthopedic Service who told him they cannot fully narcotics this evening because they have not been seen by themselves and are understandably frustrated at this time. Patient states she has increased and taking 2 tabs at a time instead of 1 because she has had difficulty with pain management and is up frequently secondary to loose stools from lack of colon. Patient states she has not had a rapid increase in her pain. There is occasionally tingling but not consistently. She was also told by Orthopedic surgery not to take any ibuprofen. Related Data Previous Rx's Medication Instructions Recorded hydrocodone-acetaminophen [[place]] 1 tab PO Q6H PRN #10 tab 06/18/19 zolegc-hpjxzpsh-rgjqjro [Creon] 7.371 cap PO TID #30 cap 06/18/19 ondansetron HCl [Zofran] 4 mg PO Q6H PRN #10 tab 06/18/19 oxycodone-acetaminophen 1 tab PO Q6H PRN 10 Days #20 tab 10/29/20 oxycodone 5 mg PO Q4H PRN #20 tab 10/31/20 Allergies Allergy/AdvReac Type Severity Reaction Status Date / Time codeine Allergy Headache Verified 06/18/19 10:40 Penicillins Allergy Rash Verified 06/18/19 10:40 Review of Systems Review of Systems ROS Unobtainable: All systems reviewed & are unremarkable except as noted in HPI and below Patient History Medical History Bowel obstruction Familial adenomatous polyposis Surgical History H/O colectomy H/O tubal ligation Family History Father Colon cancer Social History Smoking Status: Never smoker Smoking Status: Never smoker alcohol intake frequency: 3 or more drinks per day Substance Use Type: marijuana Exam Narrative Exam Narrative: GENERAL: Alert and oriented x three, female in mild distress. HEENT: Head normocephalic, atraumatic, EOMI, pupils reactive, face symmetric, moist mucous membranes NECK: Supple, full range of motion CARDIOVASCULAR: Regular rate and rhythm without murmurs, rubs or gallops. RESPIRATORY: Breath sounds equal bilaterally, no wheezes rales or rhonchi. EXTREMITIES: Patient's right ankle is in a splint. Unable to evaluate her toes which have some slight swelling. They are nontender to touch. She has good cap refill less than 2 seconds. She has sensation to light touch. Neurovascularly intact. NEUROLOGICAL: Cranial nerves II through XII grossly intact. Moving all extremities SKIN: Warm, dry, no petechiae, no rashes or lesions otherwise noted. Initial Vital Signs Initial Vital Signs: Vital Signs Temperature 98.0 F 10/31/20 19:24 Pulse Rate 105 H 10/31/20 19:24 Respiratory Rate 20 10/31/20 19:24 Blood Pressure 138/80 10/31/20 19:24 Pulse Oximetry 100 10/31/20 19:24 Course Vital Signs Vital signs: Vital Signs - 8 hr 10/31/20 19:24 Temperature 98.0 F Pulse Rate 105 H Respiratory Rate 20 Blood Pressure 138/80 Pulse Oximetry 100 Discharge Plan Departure Patient Disposition: Home Clinical Impression: Encounter for medication refill Ankle fracture Qualifiers: Encounter type: initial encounter Fracture type: closed Laterality: right Qualified Code(s): S82.891A - Other fracture of right lower leg, initial encounter for closed fracture Activity Restrictions/Additional Instructions: Follow up with orthopedic surgery. I hope your surgical repair goes well. You may take Tylenol up to a 1000 mg every 8 hours as needed. You may take oxycodone 1-2 tablets every 4-6 hours as needed. This medication can make you sleepy do not drive, perform hazardous activities or make any major decisions while taking it. This medication will make you constipated please take a stool softener once to twice daily until stools are soft and regular. Prescription to [facility] in [place]. Splint Care: Keep splint clean and dry. Elevated affected body part to decrease swelling. OK to use ice pack on the affected body part. Use for 15-20 minutes each time, for 5-6x per day. If you develop worsening pain, numbness, tingling, discoloration of the affected body part, loosen the splint by loosening the GALINA wrap, and either see your doctor for an urgent re-assessment, or return to the Emergency Department. Return to the Emergency Department for any new or worsening symptoms. Prescriptions: New oxycodone 5 mg tablet 5 mg PO Q4H PRN (Reason: pain) Qty: 20 RF: 0 No Action ondansetron HCl [Zofran] 4 mg tablet 4 mg PO Q6H PRN (Reason: nausea and vomiting) Qty: 10 RF: 0 hydrocodone-acetaminophen [[place]] 5-325 mg tablet 1 tab PO Q6H PRN (Reason: pain) Qty: 10 RF: 0 Creon 6,000-19,000 -30,000 unit capsule,delayed release(DR/EC) 7.371 cap PO TID Qty: 30 RF: 0 oxycodone-acetaminophen 5-325 mg tablet 1 tab PO Q6H PRN (Reason: pain) 10 Days Qty: 20 RF: 0 Referrals: Leela Singleton ARNP [Primary Care Provider] -
== END 2020-10-31 20:09 | disposition home or self-care (01) ==
PROVIDERS: Emergency Provider Emergency Medicine; PCP Nurse Practitioner Family
DX: Z76.0 Encounter for issue of repeat prescription (principal); S82.891A Other fracture of right lower leg, initial encounter for closed fracture
CPT/HCPCS: 99281

== ENCOUNTER 2020-11-03 12:00 | Day surgery (SDC) | payer OTHER, MEDICAID, SELFPAY ==
[2020-11-02 07:54] VITALS: BMI 38.2
[2020-11-03] VITALS (8 sets, daily range): BP systolic 116–150; BP diastolic 62–85; PULSE 84–104; RESP 10–16; TEMP 36.7; O2SAT 96–100; BMI 38.2
[2020-11-03 12:53] LABS: COVID19 -Nasal RAPID Negative (Negative)
[2020-11-03] MEDS: LACTATED RINGERS 1,000 ML 42 ML IV ×2 (13:30→16:35)
--- NOTE | 2020-11-03 15:11 | PM.PREOP ---
Pre-operative Note COVID-19 COVID-19 status: Negative Interval Note History & Physical reviewed/Exam performed by Physician: Yes Changes to H&P: No
[2020-11-03] MEDS: CEFAZOLIN 1 GM VIAL 2 GM IV (15:20)
[2020-11-03] MEDS: BUPIVACAINE 0.5% (PF) VIAL 30 ML INJ (15:51)
--- NOTE | 2020-11-03 15:52 | SUR.OPER ---
Supine on padded OR bed, head on pillow, arms secured on padded arm boards at <90 degrees abduction, legs uncrossed, safety belt at torso, tape over blanket over left lower leg. gel Bump under right hip. Right leg in control of the surgeon.
--- NOTE | 2020-11-03 17:24 | P.OP_ITS ---
Operative Date/Time/Diagnoses Date of procedure: 11/03/20 Time of procedure: 15:45 Pre-op diagnosis: Right bimalleolar ankle fracture Post-op diagnosis: same Procedure & Clinicians Procedure: Open reduction internal fixation of a right bimalleolar ankle fracture Same procedure as scheduled: Yes Indications: Right bimalleolar ankle fracture Surgeon: Karthik Heller Click Yes if Unassisted: Yes Anesthesia Type: General Operative Notes Findings: Displaced bimalleolar ankle fracture Closure Type: primary Applied: implant(s) (Arthrex distal fibular plate 24.0 partially-threaded cancellous screws) Estimated Blood Loss (mL): 50 Blood products transfused: none Tourniquet time (min): 90 Procedure in detail: On date of service, patient was met in the holding area where her operative site was signed and witnessed by the OR staff. Surgeries once again discussed with the patient and any remaining questions or concerns she had were answered fully. Patient was taken back to the operating theater. Placed on the operating table in a supine position. Great care was taken to ensure that all bony prominences were appropriately padded. Well-padded tourniquet was placed up along the left leg. Time-out was performed verifying p atient's name, procedure, and operative site. Left leg was prepped and draped in normal sterile fashion. Esmarch was used to exsanguinate the limb and the tourniquet was turned up to 250 mm of mercury. Ten blade was used to incise through skin and fascial tissue. An incision was made starting at the tip of the distal fibula and extending proximally. Deep knife was used to continue sharp dissection down to the periosteum of the distal fibula. Periosteal tissue was dissected off the distal fibula giving us good visualization of the fracture. A curette was used to debride the fracture site removing any interposed soft tissue. Then the fracture site was copiously irrigated. Next, 2 point reduction forceps were used to reduce the fracture. C-arm was brought in to verify reduction. Once we were satisfied with the reduction a lag screw was placed across fracture. This provided good compression at the fracture site. Next, distal fibular plate was placed and held provisionally. This was then secured both proximal and distal to the fracture the combination of locking and nonlocking screws. The plate and screws plus the lag screw provided strong overall fixation and stabilization of the fracture. The wound was then copiously irrigated. It was closed in layered fashion. Next, we turned our attention to the medial malleolus. Curvilinear incision was made centered over the distal tip of the medial malleolus. Ten blade was used to incise the skin and fascial tissue. Deep knife was used to continue the dissection until the periosteal tissue over the medial malleolus was visualized. Curette and rongeur was used to clean out the fracture site in the fracture site was then copiously irrigated. The fracture was reduced using a 2 point reduction forceps. This reduction was verified on C-arm. Next, 2 guidewires were placed across the fracture and these were measured. They were then drilled followed by the placement of 2 partially-threaded cancellous 4-0 screws. This provided good compression of the fracture. Final x-rays were obtained. The wound was copiously irrigated and then closed in a layered fashion. Patient's leg was cleaned, dried, and dressed and a splint was placed. Patient was extubated and taken to the PACU in stable condition. Complications: none Post-operative Condition: stable Disposition: PACU Plan for aftercare: Patient will be nonweightbearing for 2 weeks. After 2 weeks patient can be converted into a fracture boot and at that point can weight bear 25%.
[2020-11-03] MEDS: ONDANSETRON 4 MG/2 ML INJ IV (17:36)
[2020-11-03] MEDS: HALOPERIDOL 5 MG/ML VIAL 1 MG IV (18:00)
[2020-11-03] MEDS: fentaNYL 100 MCG/2 ML INJ IV (18:06)
--- NOTE | 2020-11-03 19:09 | SUR.PHASEII ---
Pt ambulated with crutches and assistance to bathroom and into vehicle. Nausea resolved. Denies ankle pain. C/O migrane - will take her magsalts when she gets home.
== END 2020-11-03 18:55 | disposition home or self-care (01) ==
PROVIDERS: PCP Nurse Practitioner Family; Referring Provider Orthopaedic Surgery; Visit Provider Orthopaedic Surgery
PROC: 0SSF04Z Reposition Right Ankle Joint with Internal Fixation Device, Open Approach (ICD-10-PCS; CPT 27814; principal; 2020-11-03 14:15)
DX: S82.841A Displaced bimalleolar fracture of right lower leg, initial encounter for closed fracture (principal); W10.9XXA Fall (on) (from) unspecified stairs and steps, initial encounter; E66.9 Obesity, unspecified; G47.33 Obstructive sleep apnea (adult) (pediatric); Z68.38 Body mass index [BMI] 38.0-38.9, adult; Z20.822 Contact with and (suspected) exposure to COVID-19
CPT/HCPCS: 27814; 87635; J0690; J1100; J1170; J1630; J2405; J2704; J3010